=== PATIENT | female | born 1990 | race American Indian/Alaskan Native ===

== ENCOUNTER 2019-02-14 20:03 | Outpatient (CLI) | payer MEDICAID ==
[2019-02-14] MEDS ORDERED: LACTATED RINGERS 1,000 ML IV ONE (20:05)
[2019-02-14 21:30] LABS: Bacteria,Urine 1+ /HPF (Negative); Bilirubin,Urine NEG (Negative); Blood,Urine MOD (Negative); Color,Urine Straw (Yellow); Protein,Urine <15 mg/dL mg/dL (Negative); Urobilinogen,Urine < 2.0 mg/dL (<2.0)
--- NOTE | 2019-02-14 21:36 | Ultrasound Report ---
PROCEDURE: US OB FOLLOW UP TECHNIQUE: Limited Limited OB ultrasound HISTORY: vaginal bleeding COMPARISONS: None FINDINGS: US Age (average) = 29 W 3 D EFW (BPD,HC,AC,FL) = 1426 g +/- 211 g (3 lbs 2 oz. +/- 7oz.) US EDC 04/29/2019 BPD 7.3 cm corresponding to age 29 weeks 1 day HC 26.8 cm corresponding to age 29 weeks 1 day AC 25.7 cm corresponding to age 29 weeks 6 days FL 5.6 cm corresponding to age 29 weeks 4 days Presentation: Cephalic Activity: Monitored Placental location: Anterior with no evidence for placental abruption Placental grade: 1 Cardiac motion: 158 BPM using M-mode doppler Amniotic Fluid Volume: Adequate MINGO 10.2 cm Cervical Length: 3.2 cm IMPRESSION: Single intrauterine viable with an approximate age of 29 weeks 3 days. No evidence of place ntal abruption This document is electronically signed by Nahed Alfaro MD., February 14 2019 09:33:28 PM ET
[2019-02-14] MEDS ORDERED: BRETHINE SUB-Q SCH (22:00)
[2019-02-14] MEDS ORDERED: LACTATED RINGERS 1,000 ML IV SCH (22:00)
[2019-02-14 22:31] VITALS: BP 119/56
== END 2019-02-14 23:20 | disposition home or self-care (01) ==
LOC: TRG 20:03 → LD 20:06 → TRG 23:20
PROVIDERS: ATTEND Obstetrics & Gynecology
DX: O46.93 Antepartum hemorrhage, unspecified, third trimester (principal); Z3A.29 29 weeks gestation of pregnancy
CPT/HCPCS: 76816; 81001; 96360; 96372; J3105; J7120

== ENCOUNTER 2019-03-16 01:26 | Observation (INO) | payer MEDICAID ==
[2019-03-16] MEDS ORDERED: LACTATED RINGERS 500 ML IV ONE (01:44)
[2019-03-16] MEDS ORDERED: LACTATED RINGERS 1,000 ML ONE ×2 (01:54→07:17)
[2019-03-16 03:29] LABS: Bilirubin,Urine NEG (Negative); Blood,Urine MOD (Negative); Color,Urine Yellow (Yellow); Protein,Urine <15 mg/dL mg/dL (Negative); Urobilinogen,Urine < 2.0 mg/dL (<2.0)
[2019-03-16] MEDS: PROCARDIA*For Tocolysis only PO SCH ×2 (04:06→06:06)
--- NOTE | 2019-03-16 04:25 | Ultrasound Report ---
PROCEDURE: US OB LIMITED TECHNIQUE: Obstetrical ultrasound for evaluation of amniotic fluid volume and placenta. HISTORY: well-being MINGO COMPARISONS: None available FINDINGS: There is a single fetus in a vertex presentation. The placenta is along the anterior uterus. he art rate 146 bpm. 4 quadrant amniotic fluid volume 12 cm IMPRESSION: There is a single fetus in a vertex presentation. The 4 quadrant amniotic fluid volume is 12 cm.. This document is electronically signed by Renay Pressley DO., Mar 16 2019 04:23:30 AM ET
--- NOTE | 2019-03-16 04:26 | Ultrasound Report ---
PROCEDURE: US OB BPP WO NON-STRESS TECHNIQUE: Sonographic evaluation for breathing, movement, tone, and amniotic flui d volume was performed. HISTORY: well being COMPARISONS: None . FINDINGS: FETUS Amniotic fluid volume Normal-score 2. At least one vertical pocket >2 cm or more in vertical axis . breathing: Normal-score 2 . movement: Normal-score 2 . tone: Normal-score 2 . Score: 8 of 8 . IMPRESSION: Normal biophysical profile . This document is electronically signed by Renay Pressley DO., Mar 16 2019 04:24:40 AM ET
[2019-03-16 04:45] LABS: Hematocrit 31.9 % (30.3-42.9); Hemoglobin 11.1 gm/dl (10.1-14.3); Mean Corpuscular HGB Conc 35 % (30-34); Mean Corpuscular Volume 97 fl (79-97); Platelet Count 152 K/mm3 (140-440); Red Blood Count 3.28 M/mm3 (3.65-5.03); Red Cell Distribution Width 14.5 % (13.2-15.2)
[2019-03-16] MEDS ORDERED: CELESTONE SOLUSPAN IM ONE (07:21)
[2019-03-16] MEDS: CELESTONE SOLUSPAN IM SCH (07:36)
--- NOTE | 2019-03-16 10:43 | Ultrasound Report ---
PROCEDURE: US OB LIMITED TECHNIQUE: Limited obstetrical ultrasound performed. HISTORY: R/O placental abruption. COMPARISON: None FINDINGS: There is a third trimester single live intrauterine . cardiac activity seen and measur ed at 156 bpm position is cephalic. Placenta is anterior. There is no placental abruption seen. There is no placenta previa seen. IMPRESSION: No evidence of placental abruption. This document is electronically signed by Mahnaz Kemp MD., Mar 16 2019 10:41:22 AM ET
--- NOTE | 2019-03-16 11:02 | History and Physical Report ---
History of Present Illness Date of examination: 03/16/19 Date of admission: 03/16/19 Chief complaint: contractions History of present illness: This is 28 yo G P at weeks here for vaginal bleeding and contractions Past History Past Medical History: no pertinent history Past Surgical History: no surgical history Family/Genetic History: none Social history: no significant social history, single. denies: smoking, alcohol abuse, prescription drug abuse - Obstetrical History : 3 Medications and Allergies Allergies Allergy/AdvReac Type Severity Reaction Status Date / Time No Known Allergies Allergy Verified 02/14/19 20:05 Active Meds: Active Medications Betamethasone Acet/Betameth SodPhos (Celestone Soluspan) 12 mg IM Q24HR JACK[facility] Last Admin: 03/16/19 07:36 Dose: 12 mg Documented by: Lactated Ringer's (Lactated Ringers) 1,000 mls @ 125 mls/hr IV DIRECT JACKY Nifedipine (Procardia*For Tocolysis Only*) 10 mg PO MAYREPEAT [facility] Last Admin: 03/16/19 06:06 Dose: 10 mg Documented by: Review of Systems All systems: negative Genitourinary: vaginal bleeding, contractions - Vital Signs Vital signs: Vital Signs Pulse BP 76 129/81 03/16/19 01:40 03/16/19 01:40 Temp Pulse Resp BP Pulse Ox 98.1 F 76 129/81 03/16/19 02:30 03/16/19 02:30 03/16/19 02:30 - Physical Exam Breasts: Positive: normal Cardiovascular: Regular rate, Normal S1 Lungs: Positive: Clear to auscultation, Normal air movement Abdomen: Positive: normal appearance, soft, normal bowel sounds. Negative: distention, tenderness, guarding Genitourinary (Female): Positive: normal external genitalia, normal perenium Vagina: Positive: normal moisture Uterus: Positive: normal size Anus/Rectum: Positive: normal perianal skin Extremities: Positive: normal Deep Tendon Reflex Grade: Normal +2 - Obstetrical FHR: category 1 Cervical Dilatation: 0.5 Results Result Diagrams: 03/16/19 04:05 Abnormal lab results 03/16/19 Range/Units 04:05 RBC 3.28 L (3.65-5.03) M/mm3 MCH 34 H (28-32) pg MCHC 35 H (30-34) % All other labs normal. Ultrasound: report reviewed Assessment and Plan A/P HD#1 33 weeks vaginal bleeding and contraction observation for 24 hrs consult with MFM pad count' close monitor of maternal and status
[2019-03-16] MEDS: LACTATED RINGERS 1,000 ML IV SCH ×2 (16:36→23:40)
--- NOTE | 2019-03-17 08:06 | Progress Note ---
Assessment and Plan A/P HD#2 33 weeks vaginal bleeding and contraction observation for 24 hrs awaiting consult with MFM pad count no report of bleeding nor contractions overnight repeat US for BPP, doppler, ely, efw, repeat cbc close monitor of maternal and status Subjective - Subjective Date of service: 03/17/19 Principal diagnosis: vaginal bleeding and contractions Interval history: This is 28 yo G P at weeks here for vaginal bleeding and contractions Patient reports: movement normal, no new complaints, no loss of fluid, no vaginal bleeding, no contractions Objective - Vital Signs Vital Signs: Vital Signs - 12hr 03/16/19 03/16/19 03/16/19 20:54 20:55 20:57 Temperature 97.4 F L Pulse Rate 79 77 78 Respiratory 18 Rate Blood Pressure 121/58 Blood Pressure 121/58 [Right] O2 Sat by Pulse 99 98 Oximetry - Exam Breasts: normal Cardiovascular: Regular rate, Normal S1 Lungs: Clear to auscultation, Normal air movement Abdomen: Present: normal appearance, soft, normal bowel sounds. Absent: distention, tenderness, guarding Vulva: both: normal Uterus: Present: normal, firm, fundal height below umbilicus. Absent: bogginess, tenderness FHR: category 1 Cervical Dilatation: 1 Uterine Contraction Pattern: Absent Uterine Tone Measurement Phase: Resting Extremities: normal Deep Tendon Reflex Grade: Normal +2 - Labs Labs: Abnormal Labs 03/16/19 04:05 RBC 3.28 L MCH 34 H MCHC 35 H
[2019-03-17] MEDS: CELESTONE SOLUSPAN IM SCH (09:40)
--- NOTE | 2019-03-17 09:42 | Ultrasound Report ---
ULTRASOUND OB VELOCIMETRY UMBILICAL ARTERY HISTORY: well being. TECHNIQUE: Transabdominal ultrasound. Spectral Doppler interrogation was performed on 3 segments of the umbilical cord. FINDINGS: heart rate measures 143 beats per minute. The spectral waveforms are normal and persistent. No evidence for loss or reversal of end-diastolic flow. The resistive index average measures 0.55. The systolic/diastolic ratio average measures 2.25. IMPRESSION: Umbilical cord Doppler within normal limits.
--- NOTE | 2019-03-17 09:42 | Ultrasound Report ---
ULTRASOUND BIOPHYSICAL PROFILE: History: well being Technique: Transabdominal ultrasound with Doppler interrogation. 2 - breathing movements 2 - movements 2 - posture and tone 2 - Qualitative amniotic fluid volume 8 - TOTAL SCORE OF POSSIBLE 8 Heart Rate (bpm) 13
--- NOTE | 2019-03-17 09:46 | Ultrasound Report ---
OB ULTRASOUND History: well being. Technique: Transabdominal ultrasound with Doppler interrogation. Gestation: Single Position: Cephalic Amniotic Fluid: Normal MINGO = 18.3 cm Heart Rate: 143 BPM BPD: 8.4 cm = 33 w 4 d HC: 30.5 cm = 34 w 0 d AC: 30.5 cm = 34 w 0 d FL: 6.4 cm = 33 w 0 d HC/AC Ratio: 1.00 Cephalic Index: 85.9 Estimated Weight: 2306 grams Clinical age = 34 w 0 d EDC: 04/28/19 US Gest. Age = 33 w 5 d EDC: 04/30/19 IMPRESSION: Viable, single intrauterine as described.
[2019-03-17 09:47] VITALS: BP 99/50
[2019-03-17 11:05] LABS: Basophils % (Auto) 0.2 % (0.0-1.8); Eosinophils % (Auto) 0.1 % (0.0-4.3); Hematocrit 30.6 % (30.3-42.9); Hemoglobin 10.4 gm/dl (10.1-14.3); Lymphocytes # (Auto) 1.3 K/mm3 (1.2-5.4); Lymphocytes % (Auto) 16.4 % (13.4-35.0); Mean Corpuscular HGB Conc 34 % (30-34); Mean Corpuscular Volume 98 fl (79-97); Monocytes # (Auto) 0.6 K/mm3 (0.0-0.8); Monocytes % (Auto) 7.5 % (0.0-7.3); Platelet Count 145 K/mm3 (140-440); Red Blood Count 3.12 M/mm3 (3.65-5.03); Red Cell Distribution Width 14.7 % (13.2-15.2)
--- NOTE | 2019-03-17 12:49 | Consultation ---
History of Present Illness Consult date: 03/17/19 Requesting physician: NITA LAROSE History of present illness: @ 33+ weeks that has contractions now ceased the patient is doing well this morning and she has no complaints at this time she has no vaginal bleeding, no contractions at this time; the baby is moving well Past History Past Medical History: no pertinent history Past Surgical History: no surgical history Family/Genetic History: none - Obstetrical History : 3 Medications and Allergies Allergies Allergy/AdvReac Type Severity Reaction Status Date / Time No Known Allergies Allergy Verified 02/14/19 20:05 Active Meds: Active Medications Betamethasone Acet/Betameth SodPhos (Celestone Soluspan) 12 mg IM Q24HR [facility] Last Admin: 03/17/19 09:40 Dose: 12 mg Documented by: Lactated Ringer's (Lactated Ringers) 1,000 mls @ 125 mls/hr IV DIRECT [facility] Last Admin: 03/16/19 23:40 Dose: 125 mls/hr Documented by: Nifedipine (Procardia*For Tocolysis Only*) 10 mg PO MAYREPEAT [facility] Last Admin: 03/16/19 06:06 Dose: 10 mg Documented by: Review of Systems Eyes: normal appearance Cardiovascular: no orthopnea, no palpitations, no syncope, no shortness of breath Respiratory: no cough, no cough with sputum Gastrointestinal: no abdominal pain, no nausea, no vomiting Musculoskeletal: no neck stiffness, no neck pain Neurological: no weakness, no parathesias, no tingling - Vital Signs Vital signs: Vital Signs Pulse BP 76 129/81 03/16/19 01:40 03/16/19 01:40 Temp Pulse Resp BP Pulse Ox 98.3 F 77 18 99/50 98 03/17/19 08:00 03/17/19 09:45 03/16/19 20:54 03/17/19 09:45 03/16/19 20:55 - Physical Exam Cardiovascular: Regular rate Abdomen: Negative: distention, tenderness, guarding - Obstetrical FHR: category 1 Results Result Diagrams: 03/17/19 10:32 Abnormal lab results 03/17/19 Range/Units 10:32 RBC 3.12 L (3.65-5.03) M/mm3 MCV 98 H (79-97) fl MCH 33 H (28-32) pg [place] % (Auto) 7.5 H (0.0-7.3) % Seg Neutrophils % 75.8 H (40.0-70.0) % All other labs normal. Assessment and Plan The patient is @ 33+ weeks with PTC, and ceased PTL at 1 cm - I reviewed the US images there are no signs abruption - the patient has no bleeding now, all yesterday - the patient has no contractions now - she is s/p beta course - if tracing is cat 1 and no cervical change the patient can be dc - she has follow up with [facility] this week - call myself with concerns [phone]
--- NOTE | 2019-03-17 13:17 | Discharge Summary ---
Providers - Providers Date of Admission: 03/16/19 15:59 Date of discharge: 03/17/19 Attending physician: NITA LAROSE MD 03/17/19 08:09 Consult to Physician [CONS] Urgent Comment: Consulting Provider: BARI ENG Physician Instructions: Reason For Exam: vaginal bleeding, contractions Primary care physician: URI LAROSE Hospitalization Reason for admission: vaginal bleeding, labor Hospital course: Patient was here for labor and vaginal bleeding and was seen and observed for 24hrs. s/p course of steroids. seen by MFM. patient stable no change in cervical exam and will d/c home to f/u with [facility] and [facility] next week Condition at discharge: Good Disposition: DC-01 TO HOME OR SELFCARE Plan - Provider Discharge Summary Additional instructions: [] Smoking cessation referral if applicable(refer to patient education folder for contact #) [] Refer to [facility]'s [facility] Booklet Call your doctor immediately for: * Fever > 100.5 * Heavy vaginal bleeding ( >1 pad per hour) * Severe persistent headache * Shortness of breath * Reddened, hot, painful area to leg or breast * Drainage or odor from incision. * Keep incision clean and dry at all times and follow doctor's instructions regarding bathing/showering - Follow up plan Follow up: URI LAROSE MD [Primary Care Provider] - 7 Days
== END 2019-03-17 14:54 | disposition home or self-care (01) ==
LOC: TRG 01:26 → LD 08:31 → TRG 15:58 → LD 15:59
PROVIDERS: ADMIT Obstetrics & Gynecology; ATTEND Obstetrics & Gynecology
DX: O62.9 Abnormality of forces of labor, unspecified (principal); O46.93 Antepartum hemorrhage, unspecified, third trimester; Z3A.33 33 weeks gestation of pregnancy; Z79.899 Other long term (current) drug therapy
CPT/HCPCS: 36415; 76815; 76816; 76819; 76820; 81001; 85025; 85027; 86850; 86900; 86901; 96372; G0378; J0702; J7120

== ENCOUNTER 2019-04-11 14:26 | Outpatient (CLI) | payer MEDICAID ==
[2019-04-11 17:48] VITALS: BP 137/67
== END 2019-04-11 18:30 | disposition home or self-care (01) ==
LOC: TRG 14:26
PROVIDERS: ATTEND Obstetrics & Gynecology
DX: O47.03 False labor before 37 completed weeks of gestation, third trimester (principal); Z3A.37 37 weeks gestation of pregnancy
CPT/HCPCS: 59025

== ENCOUNTER 2019-04-11 21:52 | Inpatient (IN) | payer MEDICAID ==
[2019-04-11] MEDS ORDERED: LACTATED RINGERS 1,000 ML ONE (22:21)
[2019-04-11] MEDS ORDERED: MINERAL OIL PO PRN (23:08)
[2019-04-11] MEDS ORDERED: BRETHINE SUB-Q PRN (23:08)
[2019-04-11] MEDS ORDERED: ZOFRAN IV PRN (23:08)
[2019-04-11] MEDS ORDERED: AMPICILLIN/NS 2 GM/100 ML 2 GM/100 ML BAG IV ONE (23:08)
[2019-04-11] MEDS ORDERED: PITOCin/NS 20 UNIT/1000ML DRIP 20 UNITS/1,000 ML BAG IV SCH (23:45)
[2019-04-11] MEDS ORDERED: LACTATED RINGERS 1,000 ML IV SCH (23:45)
[2019-04-12 00:14] LABS: Hemoglobin 12.9 gm/dl (10.1-14.3); Mean Corpuscular HGB Conc 36 % (30-34); Mean Corpuscular Volume 98 fl (79-97); Platelet Count 181 K/mm3 (140-440); Red Blood Count 3.67 M/mm3 (3.65-5.03); Red Cell Distribution Width 14.9 % (13.2-15.2)
[2019-04-12] MEDS ORDERED: SUBLIMAZE ONE (00:40)
[2019-04-12] MEDS ORDERED: MARCAINE 0.25% INFILTRATI ONE ×2 (00:41→02:40)
[2019-04-12] MEDS ORDERED: MINERAL OIL PO PRN (01:17)
[2019-04-12] MEDS ORDERED: SUBLIMAZE IV PRN (01:17)
[2019-04-12] MEDS ORDERED: STADOL IV PRN (01:17)
[2019-04-12] MEDS ORDERED: BRETHINE IVP PRN (01:17)
[2019-04-12] MEDS ORDERED: XYLOCAINE 2% INFILTRATI ONE ×2 (01:17→04:33)
[2019-04-12] MEDS ORDERED: BRETHINE SUB-Q PRN (01:17)
--- NOTE | 2019-04-12 01:25 | History and Physical Report ---
History of Present Illness Date of examination: 04/12/19 Date of admission: 04/12/19 00:31 Chief complaint: Labor History of present illness: Pt is a 28yo BF EDC 04/28/19; EGA 37 5/7 weeks presents to L&D complaining of RUC's q 3-5 mins. She denies ROM or bleeding. She received care at [facility] since 10 weeks and co-managed by [facility] for abnormal AFP. records are available and GBS is Positive. Past History Past Medical History: no pertinent history Past Surgical History: no surgical history Family/Genetic History: none Social history: no significant social history, single - Obstetrical History Expected Date of Delivery: 04/28/19 Actual Gestation: 37 Week(s) 5 Day(s) : 3 Medications and Allergies Allergies Allergy/AdvReac Type Severity Reaction Status Date / Time No Known Allergies Allergy Verified 04/11/19 15:45 Home Medications Medication Instructions Recorded Confirmed Last Taken Type Pnv,Calcium 72/Iron/Folic Acid 1 each PO DAILY 04/11/19 04/12/19 04/11/19 History [Preplus Ca-Fe 27 mg-FA 1 mg Tb] Active Meds: Active Medications Butorphanol Tartrate (Stadol) 2 mg IV Q2H PRN PRN Reason: Pain , Severe (7-10) Ephedrine Sulfate (Ephedrine Sulfate) 10 mg IV Q2M PRN PRN Reason: Hypotension Ephedrine Sulfate (Ephedrine Sulfate) 10 mg IV Q2M PRN PRN Reason: Hypotension Fentanyl (Sublimaze) 100 mcg IV Q2H PRN PRN Reason: Labor Pain Oxytocin/Sodium Chloride (Pitocin/Ns 20 Unit/1000ml Drip) 20 units in 1,000 mls @ 125 mls/hr IV DIRECT [facility]ACYK Lactated Ringer's (Lactated Ringers) 1,000 mls @ 125 mls/hr IV DIRECT [facility]ACK[facility] Last Admin: 04/12/19 00:43 Dose: 125 mls/hr Documented by: Oxytocin/Sodium Chloride (Pitocin/Ns 20 Unit/1000ml Drip) 20 units in 1,000 mls @ 125 mls/hr IV DIRECT JACKY Oxytocin/Sodium Chloride (Pitocin/Ns 30 Unit/500ml) 30 units in 500 mls @ 1 mls/hr IV TITR JACKY; Protocol Oxytocin/Sodium Chloride (Pitocin/Ns 30 Unit/500ml) 30 units in 500 mls @ 4 mls/hr IV TITR JACKY; Protocol Lactated Ringer's (Lactated Ringers) 1,000 mls @ 125 mls/hr IV DIRECT JACKY Ampicillin Sodium (Ampicillin/Ns 1 Gm/50 Ml) 1 gm in 50 mls @ 100 mls/hr IV Q4HR JACKY; Protocol Lidocaine (Xylocaine 2%) 20 ml INFILTRATI ONCE ONE Stop: 04/12/19 01:18 Mineral Oil (Mineral Oil) 30 ml PO QHS PRN PRN Reason: Constipation Mineral Oil (Mineral Oil) 30 ml PO QHS PRN PRN Reason: Constipation Ondansetron HCl (Zofran) 4 mg IV Q8H PRN PRN Reason: Nausea And Vomiting Terbutaline Sulfate (Brethine) 0.25 mg SUB-Q ONCE PRN PRN Reason: Hyperstimulation/Hypertonicity Terbutaline Sulfate (Brethine) 0.25 mg SUB-Q ONCE PRN PRN Reason: Hyperstimulation/Hypertonicity Terbutaline Sulfate (Brethine) 0.25 mg IVP ONCE PRN PRN Reason: Hyperstimulation/Hypertonicity Review of Systems All systems: negative - Vital Signs Vital signs: Vital Signs Pulse BP 70 127/82 04/11/19 22:01 04/11/19 22:01 Temp Pulse Resp BP Pulse Ox 73 106/51 99 04/12/19 01:20 04/12/19 01:03 04/12/19 01:20 - Physical Exam Cardiovascular: Regular rate Lungs: Positive: Clear to auscultation Abdomen: Positive: normal appearance Genitourinary (Female): Positive: normal external genitalia Vagina: Positive: normal moisture Uterus: Positive: enlarged Extremities: Positive: normal - Obstetrical FHR: category 2 Uterine Contraction Monitor Mode: External Cervical Dilatation: 6 Cervical Effacement Percentage: 80 station: -2 Uterine Contraction Pattern: Regular Uterine Tone Measurement Phase: Contraction Uterine Contraction Intensity: Strong/Firm Results Result Diagrams: 04/12/19 16:28 Abnormal lab results 04/11/19 Range/Units 22:30 MCV 98 H (79-97) fl MCH 35 H (28-32) pg MCHC 36 H (30-34) % All other labs normal. Laboratory Tests 04/11/19 04/11/1919 22:30 22:30 05:54 WBC 7.1 RBC 3.67 Hgb 12.9 Hct 36.0 MCV 98 H MCH 35 H MCHC 36 H RDW 14.9 Plt Count 181 RPR Nonreactive Blood Type A POSITIVE Antibody Screen Negative 04/12/19 16:28 WBC RBC Hgb 10.7 Hct 30.7 MCV MCH MCHC RDW Plt Count RPR Blood Type Antibody Screen Assessment and Plan - Patient Problems (1) 37 weeks gestation of Onset Date: 04/12/19 Current Visit: Yes Status: Acute Plan to address problem: A: IUP @ 37 5/7 weeks in labor + GBS P: Admit to L&D for expectant vaginal delivery IV Ampicillin
[2019-04-12] MEDS ORDERED: LACTATED RINGERS 1,000 ML IV SCH (02:00)
[2019-04-12] MEDS ORDERED: PITOCin/NS 30 UNIT/500ML 30 UNITS/500 ML BAG IV SCH ×2 (02:00)
[2019-04-12] MEDS ORDERED: PITOCin/NS 20 UNIT/1000ML DRIP 20 UNITS/1,000 ML BAG IV SCH ×2 (02:00→05:00)
--- NOTE | 2019-04-12 02:24 | Anesthesia Consultation ---
Anesthesia Consult and Med Hx Date of service: 04/12/19 - Airway Anesthetic Teeth Evaluation: Good ROM Head & Neck: Adequate Mental/Hyoid Distance: Adequate Mallampati Class: Class II - Pulmonary Exam CTA: Yes - Cardiac Exam Cardiac Exam: RRR - Pre-Operative Health Status ASA Pre-Surgery Classification: ASA2 Proposed Anesthetic Plan: Epidural - Pulmonary Hx Asthma: No COPD: No Hx Pneumonia: No - Cardiovascular System Hx Hypertension: Yes (chronic, but currently controlled with diet) - Central Nervous System Hx Seizures: No Hx Psychiatric Problems: No - Endocrine Hx Renal Disease: No Hx End Stage Renal Disease: No Hx Hypothyroidism: No Hx Hyperthyroidism: No - Hematic Hx Anemia: Yes (iron bid) Hx Sickle Cell Disease: No - Other Systems Hx Alcohol Use: Yes (occasional)
[2019-04-12] MEDS ORDERED: NARCAN 2 MG/2 ML IV PRN (02:25)
[2019-04-12] MEDS ORDERED: fentaNYL-BUPIV 2 MCG/ML-0.125% 200 MCG/100 ML BAG EPIDURAL SCH (03:00)
[2019-04-12] MEDS ORDERED: PHENERGAN PO PRN (04:40)
[2019-04-12] MEDS ORDERED: LANSINOH TP PRN (04:40)
[2019-04-12] MEDS ORDERED: TYLENOL PO PRN (04:40)
[2019-04-12] MEDS ORDERED: ZOFRAN IV PRN (04:40)
[2019-04-12] MEDS ORDERED: PHENERGAN PR PRN (04:40)
[2019-04-12] MEDS ORDERED: TUCKS PAD TP PRN (04:40)
[2019-04-12] MEDS ORDERED: DULCOLAX PR PRN (04:40)
[2019-04-12] MEDS ORDERED: BENADRYL PO PRN (04:40)
[2019-04-12] MEDS ORDERED: MILK OF MAGNESIA PO PRN (04:40)
--- NOTE | 2019-04-12 04:46 | Procedure Note ---
OB Delivery Note - Delivery Date of Delivery: 04/12/19 Surgeon: URI LAROSE Estimated blood loss: 300cc - Vaginal Delivery presentation: vertex Delivery position: OA Intrapartum events: PROM->1hr before delivery Delivery induction: none Delivery augmentation: rupture of membranes, pitocin Delivery monitor: external FHT, external uterine Route of delivery: Delivery placenta: spontaneous Delivery cord: nuchal cord, 3 umbilical vessels Episiotomy: none Delivery laceration: 2nd degree (perineal) Delivery repair: vicryl Anesthesia: epidural Delivery comments: delivered OA and placed on Mom's chest for [id number] bonding and delayed cord clamping, cut by Dad - Infant A at 1 minute: 8 at 5 minutes: 9 Infant Gender: Male (2796gms)
[2019-04-12] MEDS ORDERED: SODIUM CHLORIDE FLUSH SYRINGE 10 ML IV PRN (05:00)
[2019-04-12] MEDS ORDERED: AMPICILLIN/NS 1 GM/50 ML 1 GM/50 ML BAG IV SCH (05:19)
[2019-04-12] MEDS: COLACE PO SCH ×2 (10:17→22:17)
[2019-04-12] MEDS: PRENATAL VITAMIN PO SCH (10:17)
[2019-04-12] MEDS: FEOSOL PO SCH ×2 (10:17→22:17)
[2019-04-12] MEDS: IBUPROFEN PO SCH ×3 (10:18→23:36)
[2019-04-12 16:42] LABS: Hematocrit 30.7 % (30.3-42.9); Hemoglobin 10.7 gm/dl (10.1-14.3)
[2019-04-12] MEDS: SENOKOT S PO SCH (22:17)
[2019-04-12] MEDS: NORCO 5/325 PO PRN (22:20)
[2019-04-13] MEDS ORDERED: M-M-R II VACCINE SUB-Q ONE (04:40)
[2019-04-13] MEDS: DERMOPLAST TP PRN (05:49)
[2019-04-13] MEDS: IBUPROFEN PO SCH ×4 (05:51→23:18)
[2019-04-13] MEDS ORDERED: BOOSTRIX IM ONE (06:00)
--- NOTE | 2019-04-13 10:09 | Progress Note ---
Assessment and Plan - Patient Problems (1) 37 weeks gestation of Onset Date: 04/12/19 Current Visit: Yes Status: Resolved (2) (normal spontaneous vaginal delivery) Onset Date: 04/13/19 Current Visit: Yes Status: Resolved Plan to address problem: A: S/P - PPD #1 Doing well Asymptomatic anemia - stable P: May go home tomorrow. (3) Acute blood loss anemia Onset Date: 04/13/19 Current Visit: Yes Status: Resolved Subjective - Subjective Date of service: 04/13/19 Principal diagnosis: s/p - PPD #1 Interval history: Pt is feeling well without complaints. Bleeding improved. Patient reports: appetite normal, voiding normally, pain well controlled, flatus , ambulating normally, no dizzy ambulation, no nauseated [place]: doing well, nursing well Objective - Vital Signs Latest vital signs: Vital Signs Temp Pulse Resp BP BP Pulse Ox 04/13/19 08:00 98 F 65 20 110/41 04/13/19 06:51 18 04/13/19 05:51 18 04/13/19 00:08 98.2 F 64 20 103/50 100 04/12/19 23:20 18 04/12/19 22:20 18 04/12/19 16:47 98 F 75 20 115/52 04/12/19 11:55 98.2 F 66 20 127/48 Intake and Output 04/12/19 04/13/19 04/13/19 22:59 06:59 14:59 Intake Total 480 720 120 Balance 480 720 120 Intake: Oral 480 480 120 Intake, Free Water 240 Other: Total, Intake Amount 240 480 120 # Voids Void 1 1 1 - Exam Breasts: Present: deferred Abdomen: Present: normal appearance, soft Uterus: Present: normal, firm, fundal height below umbilicus Extremities: Present: normal - Labs Labs: Laboratory Tests 04/11/19 04/11/19 04/12/19 22:30 22:30 05:54 WBC 7.1 RBC 3.67 Hgb 12.9 Hct 36.0 MCV 98 H MCH 35 H MCHC 36 H RDW 14.9 Plt Count 181 RPR Nonreactive Blood Type A POSITIVE Antibody Screen Negative 04/12/19 16:28 WBC RBC Hgb 10.7 Hct 30.7 MCV MCH MCHC RDW Plt Count RPR Blood Type Antibody Screen
--- NOTE | 2019-04-13 10:19 | Discharge Summary ---
Providers - Providers Date of Admission: 04/12/19 00:31 Date of discharge: 04/14/19 Attending physician: URI LAROSE Primary care physician: URI LAROSE Hospitalization Reason for admission: active labor, IUP at term Delivery: Episiotomy: none Laceration: 2nd degree (perineal) Incision: normal Other procedures: none complications: none Discharge diagnosis: IUP at term delivered [place] baby: male Hospital course: Unremarkable. Condition at discharge: Good Disposition: DC-01 TO HOME OR SELFCARE - Discharge Diagnoses (1) 37 weeks gestation of Status: Resolved (2) (normal spontaneous vaginal delivery) Status: Resolved (3) Acute blood loss anemia Status: Resolved Plan - Discharge Medications Prescriptions: Benzocaine/Menthol [Dermoplast] 1 spray TP PRN PRN #1 can PRN Reason: Episiotomy Pain Ferrous Sulfate [Feosol 325 MG tab] 325 mg PO BID #60 tablet Ibuprofen [Motrin 600 MG tab] 600 mg PO Q6HR #30 tablet Vit-Fe Fumar-FA [ Vitamin] 1 each PO QDAY #30 tablet - Provider Discharge Summary Activity: routine, no sex for 6 weeks, no heavy lifting 4 weeks, no strenuous exercise Diet: routine Instructions: routine Additional instructions: [] Smoking cessation referral if applicable(refer to patient education folder for contact #) [] Refer to [facility] Booklet Call your doctor immediately for: * Fever > 100.5 * Heavy vaginal bleeding ( >1 pad per hour) * Severe persistent headache * Shortness of breath * Reddened, hot, painful area to leg or breast * Drainage or odor from incision. * Keep incision clean and dry at all times and follow doctor's instructions regarding bathing/showering - Follow up plan Follow up: URI LAROSE MD [Primary Care Provider] - 6 Weeks JELLY ORTEGA CNM [Advanced Practice Nurse] - 6 Weeks
[2019-04-13] MEDS: PRENATAL VITAMIN PO SCH (10:29)
[2019-04-13] MEDS: FEOSOL PO SCH ×2 (10:29→21:25)
[2019-04-13] MEDS: COLACE PO SCH ×2 (10:30→21:25)
[2019-04-13] MEDS: SENOKOT S PO SCH (21:37)
[2019-04-14] MEDS: IBUPROFEN PO SCH ×3 (06:01→13:10)
[2019-04-14] MEDS: FEOSOL PO SCH (10:04)
[2019-04-14] MEDS: COLACE PO SCH (10:04)
[2019-04-14] MEDS: PRENATAL VITAMIN PO SCH (10:04)
[2019-04-14] MEDS: NORCO 5/325 PO PRN (10:12)
[2019-04-14 10:19] VITALS: BP 108/54
[2019-04-14] MEDS: DERMOPLAST TP PRN (13:24)
== END 2019-04-14 13:20 | disposition home or self-care (01) | DRG 774 ==
LOC: TRG 21:52 → LD 04-12 00:31 → OB 04-12 06:25
PROVIDERS: ADMIT Obstetrics & Gynecology; ATTEND Obstetrics & Gynecology
PROC: 10E0XZZ Delivery of Products of Conception, External Approach (ICD-10-PCS; principal; 2019-04-12)
PROC: 0KQM0ZZ Repair Perineum Muscle, Open Approach (ICD-10-PCS; 2019-04-12)
PROC: 3E0R3BZ Introduction of Anesthetic Agent into Spinal Canal, Percutaneous Approach (ICD-10-PCS; 2019-04-12)
PROC: 00HU33Z Insertion of Infusion Device into Spinal Canal, Percutaneous Approach (ICD-10-PCS; 2019-04-12)
PROC: 3E0234Z Introduction of Serum, Toxoid and Vaccine into Muscle, Percutaneous Approach (ICD-10-PCS; 2019-04-13)
DX: O99.824 Streptococcus B carrier state complicating childbirth (principal); O10.92 Unspecified pre-existing hypertension complicating childbirth; Z3A.37 37 weeks gestation of pregnancy; Z37.0 Single live birth; O42.02 Full-term premature rupture of membranes, onset of labor within 24 hours of rupture; O69.81X0 Labor and delivery complicated by cord around neck, without compression, not applicable or unspecified; O70.1 Second degree perineal laceration during delivery; O90.81 Anemia of the puerperium; D62 Acute posthemorrhagic anemia; Z23 Encounter for immunization
CPT/HCPCS: 36415; 59025; 85014; 85018; 85027; 86592; 86850; 86900; 86901; 90471; 90707; 90715; G0378; J0290; J2590; J3010; J7120